=== PATIENT | male | born 1960 ===

== ENCOUNTER 2023-02-13 00:44 | Emergency (ER) | payer MEDICAID, OTHER ==
[~2023-02-13] VITALS: Ht 177.8 cm; Wt 100.0 kg
[2023-02-13] MEDS ORDERED: SODIUM CHLORIDE 0.9% 1,000 ML IV ONE (01:45)
[2023-02-13 02:24] LABS: Basophils # (auto) 0 10 ^3/uL (0-0.2); Basophils % (auto) 0.5 % (0.0-2.0); Eosinophils # (auto) 0.1 10 ^3/uL (0-0.8); Eosinophils % (auto) 1.5 % (0.0-7.0); Hematocrit 39.7 % (41.0-53.0); Hemoglobin 13.8 g/dL (13.5-17.5); Lymphocytes # (auto) 2.1 10 ^3/uL (0.4-5.4); Lymphocytes % (auto) 31.4 % (10.0-50.0); Mean Corpuscular Hemoglobin 31.9 pg (28.0-32.0); Mean Corpuscular Hgb Conc. 34.7 g/dL (32.0-36.0); Monocytes # (auto) 0.5 10 ^3/uL (0-1.3); Neutrophils # (auto) 4.1 10 ^3/uL (1.6-8.6); Neutrophils % (auto) 59.6 % (37.0-80.0); Nucleated Red Blood Cells % 0.1 %; Red Blood Cells 4.32 10^6/uL (4.5-5.90); Red Cell Distribution Width 13.3 % (11.8-14.3); White Blood Cell 6.8 10^3/uL (4.4-10.8)
[2023-02-13 02:25] LABS: Albumin 3.4 g/dL (3.4-5.0); BUN/Creatinine Ratio 9.3 (10.0-20.0); Calcium 7.9 mg/dL (8.5-10.1); Magnesium 2.1 mg/dL (1.6-2.6)
[2023-02-13 02:29] LABS: Bilirubin, Total 0.5 mg/dL (0.2-1.0); Total Protein 6.3 g/dL (6.4-8.2)
[2023-02-13 02:48] LABS: INR 1.03 (0.9-1.15); Partial Thromboplastin Time 25.1 SEC (24.5-34.5)
[2023-02-13 04:32] LABS: Urine Bacteria NONE SEEN /hpf (None Seen); Urine Blood Negative /uL (Negative); Urine Hyaline Cast MANY /lpf (0 - 2); Urine Mucus FEW (None Seen); Urine Specific Gravity 1.027 (1.001-1.035); Urine WBC 5 /hpf (0 - 3)
[2023-02-13 04:38] LABS: Amphetamine Screen, Urine NEGATIVE (NEGATIVE); Barbiturate Scree,Urine NEGATIVE (NEGATIVE); Benzodiazephine Screen, Urine POSITIVE (NEGATIVE); Cannabinoid Screen, Urine NEGATIVE (NEGATIVE); Cocaine Screen, Urine NEGATIVE (NEGATIVE); Opiate Scree,Urine NEGATIVE (NEGATIVE); Phencyclidine Screen, Urine NEGATIVE (NEGATIVE)
[2023-02-13] MEDS ORDERED: PIPERACILLIN-TAZOB 3.375GM 100 ML IV ONE (04:45)
[2023-02-13 07:33] VITALS: BP 125/57
[2023-02-13] MEDS ORDERED: HYDROcodone-ACET 10/325MG TAB PO ONE (10:15)
== END 2023-02-13 11:36 | disposition left against medical advice (07) ==
LOC: ER 00:44
DX: M54.50 Low back pain, unspecified (principal); R10.9 Unspecified abdominal pain
CPT/HCPCS: 36415; 71045; 71250; 72131; 74176; 80053; 80307; 81001; 83605; 83735; 83880; 84484; 85025; 85610; 85730; 87040; 93005; 96361; 96365; 96366; 99285; J2543; J7030